=== PATIENT | male | born 1970 | race Caucasian/White ===

== ENCOUNTER → 2018-03-26 | Outpatient (CLI) | payer BC | END | disposition home or self-care (01) | LOC: KCIC MRI 15:45 | DX: M75.122 Complete rotator cuff tear or rupture of left shoulder, not specified as traumatic (principal); M19.012 Primary osteoarthritis, left shoulder | CPT/HCPCS: 73221 ==

== ENCOUNTER → 2019-01-21 | Outpatient (CLI) | payer BC, OTHER ==
--- NOTE | 2019-01-21 10:50 | KCIC ---
MRI study of the right shoulder without contrast Clinical indications: Right shoulder pain for at least one year. Painful range of motion. TECHNIQUE: Noncontrast MRI sequences of the right shoulder were performed in all 3 planes. FINDINGS: There is severe tendinosis of the supraspinatus tendon. There is a full-thickness tear of the lateral aspect of the tendon with thin superficial fibers. This defect measures 8 mm transversely and 17 mm in transverse dimension since it extends all way to the attachment of the greater tubercle more anteriorly. There is no retraction of the tendon. The subscapularis tendon is intact. The tendon of the long head of the biceps is intact. No muscle atrophy is evident. Small amount of fluid is seen within the subdeltoid and subacromial bursa most likely secondary to the full-thickness tear. 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 There is mild spurring of the lateral inferior edge of the acromial process. A type III acromial process is seen. These findings may impinge the acromial humeral space. Mild chronic cystic change of the posterior lateral aspect of the humeral head is seen. No bone contusion or fracture or marrow infiltrative process is seen. There is mild degenerative spurring of the glenohumeral joint. No significant articular cartilage defect of the glenohumeral joint is seen. A small glenohumeral joint effusion is seen. No loose body is evident. The glenoid labrum is intact. No paralabral ganglion cyst or spinoglenoid notch ganglion cyst is evident. IMPRESSION: Full-thickness tear of the lateral aspect of the supraspinatus tendon. Impingement of the acromial humeral space. Electronically signed by: Stan Sutherland MD (01/21/2019 10:47 AM) [id number]
== END | disposition home or self-care (01) ==
LOC: KCIC MRI 09:26
PROVIDERS: ATTEND Orthopaedic Surgery
DX: M75.101 Unspecified rotator cuff tear or rupture of right shoulder, not specified as traumatic (principal); M19.011 Primary osteoarthritis, right shoulder; M75.81 Other shoulder lesions, right shoulder
CPT/HCPCS: 73221